=== PATIENT | male | born 1975 | race Two or more races ===

== ENCOUNTER 2020-12-04 17:20 | Inpatient (IN) | payer OTHER ==
[~2020-12-04] VITALS: Ht 167.6 cm; Wt 82.3 kg
[2020-12-04 18:22] LABS: Urine WBC None Seen /hpf (0 - 3)
[2020-12-04 18:28] LABS: Hematocrit 34.7 % (41.0-53.0); Hemoglobin 11.6 g/dL (13.5-17.5); Mean Corpuscular Hemoglobin 28.8 pg (28.0-32.0); Mean Corpuscular Hgb Conc. 33.5 g/dL (32.0-36.0); Mean Corpuscular Volume 85.8 fL (80.0-100.0); Red Blood Cells 4.04 10^6/uL (4.5-5.90); Red Cell Distribution Width 15.8 % (11.8-14.3); White Blood Cell 11.1 10^3/uL (4.4-10.8)
[2020-12-04 19:13] LABS: Urine Bacteria NONE SEEN /hpf (None Seen); Urine Blood 1+ /uL (Negative); Urine Specific Gravity 1.026 (1.001-1.035)
[2020-12-04 19:19] LABS: Band Neutrophils % (manual) 0; Basophils % (manual) 0 (0.0-2.0); Blast Cells 0; Metamyelocytes % 0; Myelocytes % 0; Promyelocytes % 0; Reactive Lymphocytes 0
[2020-12-04 19:22] LABS: Albumin 2.7 g/dL (3.4-5.0); Calcium 8.8 mg/dL (8.5-10.1); Potassium 4.9 mmol/L (3.5-5.1)
[2020-12-04 19:38] LABS: BUN/Creatinine Ratio 14.2; Bilirubin, Total 9.7 mg/dL (0.2-1.0); Total Protein 7.5 g/dL (6.4-8.2)
[2020-12-04] MEDS ORDERED: MORPHINE SULFATE 4 MG/ML SYR/VIAL IV ONE (21:15)
[2020-12-04] MEDS ORDERED: ONDANSETRON HCL 4 MG/2 ML VIAL IV ONE (21:15)
[2020-12-04] MEDS ORDERED: SODIUM CHLORIDE 0.9% 1,000 ML IV ONE (21:15)
[2020-12-04 21:35] LABS: Eosinophils % (manual) 1 (0-7); Lymphocytes % (manual) 8 (10.0-50.0); Monocytes % (manual) 5 (0-12)
[2020-12-04] MEDS ORDERED: MORPHINE SULFATE 4 MG/ML SYR/VIAL IV PRN (22:45)
[2020-12-04] MEDS ORDERED: NITROGLYCERIN 0.4 MG SL TAB SL PRN (22:45)
[2020-12-04] MEDS ORDERED: MORPHINE SULFATE INJECTION 2 MG/ML SYRG IV PRN (22:45)
[2020-12-04] MEDS ORDERED: ACETAMINOPHEN 325 MG TAB PO PRN (22:45)
[2020-12-04] MEDS ORDERED: ONDANSETRON HCL 4 MG/2 ML VIAL IV PRN (22:45)
[2020-12-04] MEDS ORDERED: SODIUM CHLORIDE 0.9% 1,000 ML IV SCH (22:45)
[2020-12-04] MEDS ORDERED: DEXTROSE (50%) 50ML SYRG IV PRN (22:45)
[2020-12-04] MEDS ORDERED: TEMAZEPAM 15 MG CAP PO PRN (22:45)
[2020-12-04] MEDS ORDERED: HYDROcodone-ACET 5/325MG TAB PO PRN (22:45)
[2020-12-05] MEDS ORDERED: NITROGLYCERIN 0.4 MG SL TAB SL PRN ×8 (00:15)
[2020-12-05] MEDS ORDERED: MORPHINE SULFATE INJECTION 2 MG/ML SYRG IV PRN ×8 (00:15)
[2020-12-05] MEDS ORDERED: ONDANSETRON HCL 4 MG/2 ML VIAL IV PRN ×8 (00:15)
[2020-12-05] MEDS ORDERED: MORPHINE SULFATE 4 MG/ML SYR/VIAL IV PRN ×7 (00:15)
[2020-12-05] MEDS ORDERED: DEXTROSE (50%) 50ML SYRG IV PRN ×8 (00:15)
[2020-12-05 01:27] LABS: Albumin 2.3 g/dL (3.4-5.0)
[2020-12-05 01:42] LABS: Bilirubin, Direct 8.2 mg/dL (0-0.2); Bilirubin, Total 9.1 mg/dL (0.2-1.0); Total Protein 6.8 g/dL (6.4-8.2)
[2020-12-05] MEDS: MORPHINE SULFATE 4 MG/ML SYR/VIAL IV PRN ×3 (03:25→16:21)
[2020-12-05 03:36] VITALS: BP 132/81
[2020-12-05] MEDS ORDERED: METF-370 PO (04:12)
[2020-12-05 05:00] VITALS: BP 124/69
[2020-12-05] MEDS ORDERED: metroNIDAZOLE 500MG/100ML 100 ML IV SCH (06:00)
[2020-12-05] MEDS: ACCU-CHEK COMFORT CURVE STRIP VI SCH ×4 (06:25→22:03)
[2020-12-05] MEDS: InsuLIN REG 1unit/0.01ml Soln (100units/ml) SC SCH ×4 (06:26→22:07)
[2020-12-05] MEDS ORDERED: ACCU-CHEK COMFORT CURVE STRIP VI SCH ×8 (07:00)
[2020-12-05] MEDS ORDERED: InsuLIN REG 1unit/0.01ml Soln (100units/ml) SC SCH ×17 (07:00→22:00)
[2020-12-05 07:44] LABS: Hematocrit 32.2 % (41.0-53.0); Hemoglobin 10.8 g/dL (13.5-17.5); Mean Corpuscular Hemoglobin 28.8 pg (28.0-32.0); Mean Corpuscular Hgb Conc. 33.7 g/dL (32.0-36.0); Mean Corpuscular Volume 85.5 fL (80.0-100.0); Red Blood Cells 3.76 10^6/uL (4.5-5.90); Red Cell Distribution Width 15.8 % (11.8-14.3); White Blood Cell 7.7 10^3/uL (4.4-10.8)
[2020-12-05 07:55] LABS: Basophils % (manual) 0 (0.0-2.0); Blast Cells 0; Eosinophils % (manual) 0 (0-7); Metamyelocytes % 0; Myelocytes % 0; Promyelocytes % 0; Reactive Lymphocytes 0
[2020-12-05 08:00] VITALS: BP 108/68
[2020-12-05 08:04] LABS: Albumin 2.6 g/dL (3.4-5.0); BUN/Creatinine Ratio 23.5; Calcium 8.6 mg/dL (8.5-10.1); Potassium 4.1 mmol/L (3.5-5.1)
[2020-12-05 08:26] LABS: Band Neutrophils % (manual) 1; Lymphocytes % (manual) 9 (10.0-50.0); Monocytes % (manual) 15 (0-12)
[2020-12-05 08:40] LABS: Bilirubin, Total 9.6 mg/dL (0.2-1.0)
[2020-12-05 08:41] LABS: Total Protein 6.6 g/dL (6.4-8.2)
[2020-12-05 08:50] LABS: Bilirubin, Direct 8.5 mg/dL (0-0.2)
[2020-12-05] MEDS: ENOXAPARIN SOD 40 MG/0.4 ML SYRINGE SC SCH ×2 (09:50→10:58)
[2020-12-05] MEDS: PANTOPRAZOLE 40 MG/10 ML VIAL INJ IV SCH ×2 (09:50→10:58)
[2020-12-05] MEDS ORDERED: PANTOPRAZOLE 40 MG/10 ML VIAL INJ IV SCH ×7 (10:00)
[2020-12-05] MEDS ORDERED: FAMOTIDINE (10MG/ML) 2ML VL IV SCH (10:00)
[2020-12-05] MEDS ORDERED: ENOXAPARIN SOD 40 MG/0.4 ML SYRINGE SC SCH ×7 (10:00)
[2020-12-05] MEDS ORDERED: HEPARIN SODIUM (PORCINE) 5000 UNITS/ML 1ML VIAL SC SCH (10:00)
[2020-12-05] MEDS ORDERED: ZINC SULFATE 220mg CAP or TAB PO SCH (10:00)
[2020-12-05] MEDS ORDERED: MULTIPLE VITAMIN TAB PO SCH (10:00)
[2020-12-05] MEDS ORDERED: ASCORBIC ACID 500 MG TAB PO SCH (10:00)
[2020-12-05 12:00] VITALS: BP 112/69
[2020-12-05 16:00] VITALS: BP 137/81
[2020-12-05 22:26] VITALS: BP 146/91
[2020-12-06 05:20] VITALS: BP 121/70
[2020-12-06] MEDS: ACCU-CHEK COMFORT CURVE STRIP VI SCH ×4 (05:51→21:40)
[2020-12-06] MEDS: MORPHINE SULFATE 4 MG/ML SYR/VIAL IV PRN ×2 (06:02→14:03)
[2020-12-06] MEDS: PANTOPRAZOLE 40 MG/10 ML VIAL INJ IV SCH (08:58)
[2020-12-06 09:00] VITALS: BP 123/80
[2020-12-06] MEDS: InsuLIN REG 1unit/0.01ml Soln (100units/ml) SC SCH ×3 (10:01→21:39)
[2020-12-06 13:00] VITALS: BP 111/71
[2020-12-06 17:00] VITALS: BP 142/91
[2020-12-06 22:19] VITALS: BP 138/85
[2020-12-07 05:26] VITALS: BP 124/68
[2020-12-07] MEDS: MORPHINE SULFATE 4 MG/ML SYR/VIAL IV PRN (05:28)
[2020-12-07] MEDS: ACCU-CHEK COMFORT CURVE STRIP VI SCH ×4 (05:28→22:13)
[2020-12-07 06:29] LABS: Albumin 2.1 g/dL (3.4-5.0); Calcium 8.6 mg/dL (8.5-10.1); Potassium 3.8 mmol/L (3.5-5.1)
[2020-12-07 06:32] LABS: BUN/Creatinine Ratio 13.6; Bilirubin, Total 8.1 mg/dL (0.2-1.0); Total Protein 6.7 g/dL (6.4-8.2)
[2020-12-07] MEDS: PANTOPRAZOLE 40 MG/10 ML VIAL INJ IV SCH (08:47)
[2020-12-07] MEDS: ENOXAPARIN SOD 40 MG/0.4 ML SYRINGE SC SCH (08:47)
[2020-12-07 08:55] VITALS: BP 119/70
[2020-12-07] MEDS: InsuLIN REG 1unit/0.01ml Soln (100units/ml) SC SCH ×3 (11:24→22:04)
[2020-12-07 13:00] VITALS: BP 107/66
[2020-12-07 16:53] VITALS: BP 131/79
[2020-12-07] MEDS ORDERED: diphenhdrAMINE HCL 50 MG/1 ML VL IV PRN (17:45)
[2020-12-07 22:00] VITALS: BP 115/71
[2020-12-08 05:00] VITALS: BP 121/70
[2020-12-08 07:01] LABS: Albumin 2.2 g/dL (3.4-5.0); BUN/Creatinine Ratio 10.9; Bilirubin, Total 8.6 mg/dL (0.2-1.0); Total Protein 6.8 g/dL (6.4-8.2)
[2020-12-08] MEDS: ACCU-CHEK COMFORT CURVE STRIP VI SCH ×4 (07:06→21:24)
[2020-12-08] MEDS: MORPHINE SULFATE 4 MG/ML SYR/VIAL IV PRN ×3 (07:33→21:33)
[2020-12-08 09:00] VITALS: BP 128/78
[2020-12-08] MEDS: PANTOPRAZOLE 40 MG/10 ML VIAL INJ IV SCH ×2 (09:33→17:00)
[2020-12-08] MEDS: ENOXAPARIN SOD 40 MG/0.4 ML SYRINGE SC SCH (09:33)
[2020-12-08 11:47] LABS: Hepatitis A Ab IgM Negative; Hepatitis B Core IgM Negative; Hepatitis B Surface Antigen Negative (Negative); Hepatitis C Antibody Negative (Negative)
[2020-12-08] MEDS: InsuLIN REG 1unit/0.01ml Soln (100units/ml) SC SCH ×2 (12:35→17:00)
[2020-12-08 13:00] VITALS: BP 131/81
[2020-12-08 16:56] VITALS: BP 123/84
[2020-12-08 18:12] LABS: INR 0.94 (0.9-1.15); Partial Thromboplastin Time 26.2 sec (23.6-33.0)
[2020-12-08] MEDS ORDERED: LACTULOSE 20Gm/30ML SOLN PO ONE (18:45)
[2020-12-08 22:00] VITALS: BP 124/73
[2020-12-09 05:00] VITALS: BP 109/69
[2020-12-09 06:15] LABS: Hematocrit 32.3 % (41.0-53.0); Mean Corpuscular Hemoglobin 28.5 pg (28.0-32.0); Mean Corpuscular Hgb Conc. 34.1 g/dL (32.0-36.0); Mean Corpuscular Volume 83.7 fL (80.0-100.0); Red Blood Cells 3.86 10^6/uL (4.5-5.90); Red Cell Distribution Width 16.2 % (11.8-14.3); White Blood Cell 4.2 10^3/uL (4.4-10.8)
[2020-12-09 06:17] LABS: Band Neutrophils % (manual) 0; Basophils % (manual) 0 (0.0-2.0); Blast Cells 0; Metamyelocytes % 0; Myelocytes % 0; Promyelocytes % 0; Reactive Lymphocytes 0
[2020-12-09] MEDS: ACCU-CHEK COMFORT CURVE STRIP VI SCH ×4 (06:38→22:01)
[2020-12-09] MEDS: InsuLIN REG 1unit/0.01ml Soln (100units/ml) SC SCH ×3 (06:38→16:47)
[2020-12-09] MEDS ORDERED: ceFAZolin 1GM/50ML 100 ML IV ONE (07:13)
[2020-12-09] MEDS ORDERED: LIDOCAINE 1% HCL (LOCAL ANESTH.) INJ 20ML MDV ONE (07:16)
[2020-12-09] MEDS ORDERED: BUPIVACAINE 0.5% MPF INJ 30ML SDV IJ ONE (07:16)
[2020-12-09 07:28] LABS: Eosinophils % (manual) 3 (0-7); Lymphocytes % (manual) 30 (10.0-50.0); Monocytes % (manual) 11 (0-12)
[2020-12-09] MEDS ORDERED: MORPHINE SULFATE 4 MG/ML SYR/VIAL IV PRN (07:30)
[2020-12-09] MEDS ORDERED: fentaNYL CITRATE 100 MCG/2 ML VL ONE (07:30)
[2020-12-09] MEDS ORDERED: HYDROmorphone HCL 2 MG/ML VL IV PRN (07:30)
[2020-12-09] MEDS ORDERED: HYDROmorphone HCL 2 MG/ML VL ONE ×2 (07:30→10:28)
[2020-12-09] MEDS ORDERED: ACCU-CHEK COMFORT CURVE STRIP VI ONE (07:30)
[2020-12-09] MEDS ORDERED: METOCLOPRAMIDE HCL 5MG/ml INJ 2ml VIAL IV PRN (07:30)
[2020-12-09] MEDS ORDERED: MIDAZOLAM HCL 2MG/2ML 2ml VIAL (1mg/ml) ONE (07:31)
[2020-12-09] MEDS ORDERED: ROCURONIUM 10MG/ML 10ML VIAL IV ONE (07:31)
[2020-12-09] MEDS ORDERED: GLYCOPYRROLATE 0.2 MG/ML 1ML VIAL ONE (07:36)
[2020-12-09] MEDS ORDERED: ONDANSETRON HCL 4 MG/2 ML VIAL ONE (07:36)
[2020-12-09] MEDS ORDERED: SODIUM CHLORIDE LOCK 10 ML ONE (07:36)
[2020-12-09] MEDS ORDERED: PROPOFOL 10 MG/ML 20 ML IV ONE (07:36)
[2020-12-09] MEDS ORDERED: NEOSTIGMINE 1 MG/ML INJ (10mg/10ML VIAL) ONE (07:36)
[2020-12-09] MEDS: ENOXAPARIN SOD 40 MG/0.4 ML SYRINGE SC SCH (10:00)
[2020-12-09 12:38] VITALS: BP 113/68
[2020-12-09] MEDS: SODIUM CHLORIDE 0.9% 1,000 ML IV SCH (12:48)
[2020-12-09] MEDS: HYDROmorphone HCL 2 MG/ML VL IV PRN ×2 (14:23→20:20)
[2020-12-09 16:39] VITALS: BP 114/69
[2020-12-09] MEDS: HYDROmorphone HCL 2 MG TAB PO PRN ×2 (16:39→21:02)
[2020-12-09 22:00] VITALS: BP 118/74
[2020-12-10] MEDS: HYDROmorphone HCL 2 MG TAB PO PRN ×5 (01:33→17:33)
[2020-12-10] MEDS: SODIUM CHLORIDE 0.9% 1,000 ML IV SCH ×4 (01:59→17:59)
[2020-12-10 05:00] VITALS: BP 121/73
[2020-12-10 06:31] LABS: Potassium 4.3 mmol/L (3.5-5.1)
[2020-12-10 06:37] LABS: BUN/Creatinine Ratio 14.5; Bilirubin, Total 5.5 mg/dL (0.2-1.0); Calcium 8.5 mg/dL (8.5-10.1); Total Protein 6.2 g/dL (6.4-8.2)
[2020-12-10 06:54] LABS: Hematocrit 26.7 % (41.0-53.0); Hemoglobin 8.9 g/dL (13.5-17.5); Mean Corpuscular Hemoglobin 28.3 pg (28.0-32.0); Mean Corpuscular Hgb Conc. 33.5 g/dL (32.0-36.0); Mean Corpuscular Volume 84.5 fL (80.0-100.0); Red Blood Cells 3.17 10^6/uL (4.5-5.90); Red Cell Distribution Width 16.2 % (11.8-14.3); White Blood Cell 11.7 10^3/uL (4.4-10.8)
[2020-12-10 07:02] LABS: Band Neutrophils % (manual) 0; Basophils % (manual) 0 (0.0-2.0); Blast Cells 0; Eosinophils % (manual) 0 (0-7); Metamyelocytes % 0; Myelocytes % 0; Promyelocytes % 0
[2020-12-10] MEDS: ACCU-CHEK COMFORT CURVE STRIP VI SCH ×4 (07:11→21:59)
[2020-12-10] MEDS: InsuLIN REG 1unit/0.01ml Soln (100units/ml) SC SCH ×3 (07:12→17:18)
[2020-12-10 07:35] LABS: Lymphocytes % (manual) 25 (10.0-50.0); Monocytes % (manual) 10 (0-12); Reactive Lymphocytes 1
[2020-12-10 09:00] VITALS: BP 132/76
[2020-12-10] MEDS: PANTOPRAZOLE 40 MG/10 ML VIAL INJ IV SCH (09:28)
[2020-12-10] MEDS: ENOXAPARIN SOD 40 MG/0.4 ML SYRINGE SC SCH (09:28)
[2020-12-10] MEDS ORDERED: MILK OF MAGNESIA 30ML SUSP PO PRN (09:30)
[2020-12-10 13:00] VITALS: BP 129/89
[2020-12-10] MEDS: FERROUS SULFATE 325mg EC TAB PO SCH ×2 (13:40→21:59)
[2020-12-10] MEDS: DOCUSATE SOD 100 MG CAP PO SCH ×2 (13:40→21:59)
[2020-12-10 16:44] VITALS: BP 134/80
[2020-12-10] MEDS: HYDROmorphone HCL 2 MG/ML VL IV PRN (20:49)
[2020-12-10] MEDS: SENNA 8.6 MG TAB PO SCH (21:59)
[2020-12-10 22:00] VITALS: BP 126/74
[2020-12-11] MEDS: HYDROmorphone HCL 2 MG TAB PO PRN ×6 (00:46→21:17)
[2020-12-11 05:00] VITALS: BP 141/76
[2020-12-11 05:59] LABS: Potassium 4.1 mmol/L (3.5-5.1)
[2020-12-11 06:11] LABS: BUN/Creatinine Ratio 10.8; Bilirubin, Total 4.4 mg/dL (0.2-1.0); Calcium 8.5 mg/dL (8.5-10.1); Total Protein 6.2 g/dL (6.4-8.2)
[2020-12-11 06:33] LABS: Hematocrit 24.7 % (41.0-53.0); Hemoglobin 8.3 g/dL (13.5-17.5); Mean Corpuscular Hemoglobin 28.2 pg (28.0-32.0); Mean Corpuscular Hgb Conc. 33.8 g/dL (32.0-36.0); Mean Corpuscular Volume 83.4 fL (80.0-100.0); Red Blood Cells 2.96 10^6/uL (4.5-5.90); Red Cell Distribution Width 16.3 % (11.8-14.3); White Blood Cell 9.8 10^3/uL (4.4-10.8)
[2020-12-11 06:35] LABS: Basophils % (manual) 0 (0.0-2.0); Blast Cells 0; Eosinophils % (manual) 0 (0-7); Promyelocytes % 0; Reactive Lymphocytes 0
[2020-12-11] MEDS: DOCUSATE SOD 100 MG CAP PO SCH ×3 (06:46→21:15)
[2020-12-11] MEDS: ACCU-CHEK COMFORT CURVE STRIP VI SCH ×4 (06:46→21:16)
[2020-12-11] MEDS: FERROUS SULFATE 325mg EC TAB PO SCH ×3 (06:46→21:15)
[2020-12-11] MEDS: InsuLIN REG 1unit/0.01ml Soln (100units/ml) SC SCH ×3 (06:50→17:09)
[2020-12-11 07:20] LABS: Band Neutrophils % (manual) 3; Lymphocytes % (manual) 16 (10.0-50.0); Metamyelocytes % 1; Monocytes % (manual) 11 (0-12); Myelocytes % 1
[2020-12-11 08:30] VITALS: BP 117/72
[2020-12-11 09:00] VITALS: BP 117/72
[2020-12-11] MEDS: ENOXAPARIN SOD 40 MG/0.4 ML SYRINGE SC SCH (10:04)
[2020-12-11] MEDS: HYDROmorphone HCL 2 MG/ML VL IV PRN ×3 (10:04→21:51)
[2020-12-11] MEDS: PANTOPRAZOLE 40 MG/10 ML VIAL INJ IV SCH (10:04)
[2020-12-11 12:30] VITALS: BP 114/65
[2020-12-11 17:00] VITALS: BP 123/68
[2020-12-11] MEDS: SENNA 8.6 MG TAB PO SCH (21:16)
[2020-12-11 21:39] VITALS: BP 120/75
[2020-12-12] MEDS: FERROUS SULFATE 325mg EC TAB PO SCH ×3 (05:23→21:38)
[2020-12-12] MEDS: HYDROmorphone HCL 2 MG TAB PO PRN ×5 (05:24→23:15)
[2020-12-12] MEDS: DOCUSATE SOD 100 MG CAP PO SCH ×3 (05:24→21:37)
[2020-12-12] MEDS: LACTULOSE 20Gm/30ML SOLN PO PRN ×2 (05:25→21:38)
[2020-12-12] MEDS: HYDROmorphone HCL 2 MG/ML VL IV PRN ×4 (05:25→21:40)
[2020-12-12 05:30] VITALS: BP 131/73
[2020-12-12] MEDS: ACCU-CHEK COMFORT CURVE STRIP VI SCH ×4 (05:54→21:38)
[2020-12-12] MEDS: InsuLIN REG 1unit/0.01ml Soln (100units/ml) SC SCH ×3 (05:54→17:31)
[2020-12-12 06:40] LABS: Calcium 8.6 mg/dL (8.5-10.1); Potassium 3.8 mmol/L (3.5-5.1)
[2020-12-12 06:46] LABS: BUN/Creatinine Ratio 15.2; Bilirubin, Total 3.3 mg/dL (0.2-1.0); Total Protein 6.4 g/dL (6.4-8.2)
[2020-12-12 06:56] LABS: Hematocrit 24.5 % (41.0-53.0); Hemoglobin 8.2 g/dL (13.5-17.5); Mean Corpuscular Hemoglobin 27.9 pg (28.0-32.0); Mean Corpuscular Hgb Conc. 33.6 g/dL (32.0-36.0); Red Blood Cells 2.96 10^6/uL (4.5-5.90); Red Cell Distribution Width 16.2 % (11.8-14.3); White Blood Cell 6.9 10^3/uL (4.4-10.8)
[2020-12-12 07:01] LABS: Band Neutrophils % (manual) 0; Basophils % (manual) 0 (0.0-2.0); Blast Cells 0; Metamyelocytes % 0; Promyelocytes % 0; Reactive Lymphocytes 0
[2020-12-12 08:06] LABS: Eosinophils % (manual) 2 (0-7); Lymphocytes % (manual) 25 (10.0-50.0); Monocytes % (manual) 9 (0-12); Myelocytes % 1
[2020-12-12 08:30] VITALS: BP 130/74
[2020-12-12] MEDS: PANTOPRAZOLE 40 MG/10 ML VIAL INJ IV SCH (08:56)
[2020-12-12] MEDS: ENOXAPARIN SOD 40 MG/0.4 ML SYRINGE SC SCH (08:56)
[2020-12-12 12:30] VITALS: BP 120/74
[2020-12-12 17:00] VITALS: BP 119/73
[2020-12-12] MEDS: SENNA 8.6 MG TAB PO SCH (21:38)
[2020-12-12 22:00] VITALS: BP 139/75
[2020-12-13 05:00] VITALS: BP 127/75
[2020-12-13] MEDS: FERROUS SULFATE 325mg EC TAB PO SCH ×3 (05:38→21:25)
[2020-12-13] MEDS: DOCUSATE SOD 100 MG CAP PO SCH ×3 (05:38→21:25)
[2020-12-13] MEDS: HYDROmorphone HCL 2 MG TAB PO PRN ×4 (05:39→21:26)
[2020-12-13] MEDS: HYDROmorphone HCL 2 MG/ML VL IV PRN ×4 (05:40→22:19)
[2020-12-13] MEDS: ACCU-CHEK COMFORT CURVE STRIP VI SCH ×4 (06:03→21:25)
[2020-12-13] MEDS: InsuLIN REG 1unit/0.01ml Soln (100units/ml) SC SCH ×3 (06:03→19:54)
[2020-12-13 07:41] LABS: Hematocrit 26.9 % (41.0-53.0); Hemoglobin 9.2 g/dL (13.5-17.5); Mean Corpuscular Hemoglobin 29.1 pg (28.0-32.0); Mean Corpuscular Hgb Conc. 34.1 g/dL (32.0-36.0); Mean Corpuscular Volume 85.2 fL (80.0-100.0); Red Blood Cells 3.16 10^6/uL (4.5-5.90); Red Cell Distribution Width 16.2 % (11.8-14.3); White Blood Cell 8.7 10^3/uL (4.4-10.8)
[2020-12-13 07:47] LABS: Blast Cells 0; Eosinophils % (manual) 0 (0-7); Promyelocytes % 0; Reactive Lymphocytes 0
[2020-12-13 08:02] LABS: Albumin 2.1 g/dL (3.4-5.0); Calcium 9.3 mg/dL (8.5-10.1); Potassium 4.3 mmol/L (3.5-5.1)
[2020-12-13 08:06] LABS: BUN/Creatinine Ratio 13.2; Bilirubin, Total 2.9 mg/dL (0.2-1.0)
[2020-12-13 08:53] LABS: Band Neutrophils % (manual) 1; Basophils % (manual) 1 (0.0-2.0); Lymphocytes % (manual) 23 (10.0-50.0); Metamyelocytes % 2; Monocytes % (manual) 16 (0-12); Myelocytes % 2
[2020-12-13 09:00] VITALS: BP 136/75
[2020-12-13] MEDS: ENOXAPARIN SOD 40 MG/0.4 ML SYRINGE SC SCH (10:00)
[2020-12-13] MEDS: Pro-Stat SF 30ml Vanilla PO SCH (10:05)
[2020-12-13] MEDS: PANTOPRAZOLE 40 MG/10 ML VIAL INJ IV SCH (10:05)
[2020-12-13 13:00] VITALS: BP 117/69
[2020-12-13] MEDS ORDERED: IOHEXOL 300 MG/ML 100ML BOTTLE IJ ONE (16:46)
[2020-12-13 16:57] VITALS: BP 114/65
[2020-12-13] MEDS ORDERED: HYDROmorphone HCL 2 MG/ML VL ONE (17:27)
[2020-12-13] MEDS ORDERED: SUCCINYLCHOLINE CHLORIDE 20 MG/ML 10ML VIAL IV ONE (17:30)
[2020-12-13] MEDS ORDERED: ePHEDrine SULFATE 50 MG/ML AMP IV ONE (17:33)
[2020-12-13] MEDS ORDERED: METOCLOPRAMIDE HCL 5MG/ml INJ 2ml VIAL ONE (18:04)
[2020-12-13] MEDS ORDERED: ONDANSETRON HCL 4 MG/2 ML VIAL ONE (18:04)
[2020-12-13] MEDS ORDERED: HYDROmorphone HCL 2 MG/ML VL IV PRN (18:45)
[2020-12-13] MEDS ORDERED: ONDANSETRON HCL 4 MG/2 ML VIAL IV PRN (18:45)
[2020-12-13] MEDS: SENNA 8.6 MG TAB PO SCH (21:25)
[2020-12-13 22:00] VITALS: BP 115/66
[2020-12-14] MEDS: HYDROmorphone HCL 2 MG TAB PO PRN ×3 (01:28→21:25)
[2020-12-14 05:00] VITALS: BP 141/80
[2020-12-14] MEDS: FERROUS SULFATE 325mg EC TAB PO SCH ×3 (06:21→21:24)
[2020-12-14] MEDS: DOCUSATE SOD 100 MG CAP PO SCH ×3 (06:22→21:24)
[2020-12-14] MEDS: ACCU-CHEK COMFORT CURVE STRIP VI SCH ×4 (06:23→21:24)
[2020-12-14] MEDS: HYDROmorphone HCL 2 MG/ML VL IV PRN (06:23)
[2020-12-14] MEDS: INSULIN LANTUS (GLARGINE) 1 /0.01ml (100units/ml) SC SCH (06:24)
[2020-12-14] MEDS: InsuLIN REG 1unit/0.01ml Soln (100units/ml) SC SCH ×4 (06:25→21:31)
[2020-12-14 06:31] LABS: Basophils # (auto) 0 10 ^3/uL (0-0.2); Basophils % (auto) 0.2 % (0.0-2.0); Eosinophils # (auto) 0 10 ^3/uL (0-0.8); Hematocrit 27.8 % (41.0-53.0); Hemoglobin 9.4 g/dL (13.5-17.5); Lymphocytes % (auto) 7.1 % (10.0-50.0); Mean Corpuscular Hgb Conc. 33.8 g/dL (32.0-36.0); Mean Corpuscular Volume 85.7 fL (80.0-100.0); Monocytes # (auto) 1.2 10 ^3/uL (0-1.3); Monocytes % (auto) 8.7 % (0.0-12.0); Neutrophils # (auto) 11.4 10 ^3/uL (1.6-8.6); Nucleated Red Blood Cells % 0.1 %; Red Blood Cells 3.24 10^6/uL (4.5-5.90); Red Cell Distribution Width 16.1 % (11.8-14.3); White Blood Cell 13.6 10^3/uL (4.4-10.8)
[2020-12-14 06:47] LABS: Potassium 4.4 mmol/L (3.5-5.1)
[2020-12-14 06:59] LABS: Albumin 2.1 g/dL (3.4-5.0); BUN/Creatinine Ratio 14.3; Calcium 8.7 mg/dL (8.5-10.1); Total Protein 7.1 g/dL (6.4-8.2)
[2020-12-14 09:00] VITALS: BP 117/68
[2020-12-14] MEDS: Pro-Stat SF 30ml Vanilla PO SCH (10:00)
[2020-12-14] MEDS: PANTOPRAZOLE 40 MG/10 ML VIAL INJ IV SCH (11:52)
[2020-12-14] MEDS: ENOXAPARIN SOD 40 MG/0.4 ML SYRINGE SC SCH (11:52)
[2020-12-14 13:00] VITALS: BP 121/68
[2020-12-14 17:00] VITALS: BP 118/69
[2020-12-14 20:00] VITALS: BP 108/59
[2020-12-14] MEDS: SENNA 8.6 MG TAB PO SCH (21:24)
[2020-12-14 22:00] VITALS: BP 108/59
[2020-12-15 05:00] VITALS: BP 117/66
[2020-12-15 06:11] LABS: Basophils # (auto) 0.1 10 ^3/uL (0-0.2); Basophils % (auto) 0.2 % (0.0-2.0); Eosinophils # (auto) 0 10 ^3/uL (0-0.8); Eosinophils % (auto) 0.2 % (0.0-7.0); Hematocrit 24.5 % (41.0-53.0); Hemoglobin 8.5 g/dL (13.5-17.5); Lymphocytes # (auto) 2.2 10 ^3/uL (0.4-5.4); Lymphocytes % (auto) 10.1 % (10.0-50.0); Mean Corpuscular Hemoglobin 29.7 pg (28.0-32.0); Mean Corpuscular Hgb Conc. 34.9 g/dL (32.0-36.0); Mean Corpuscular Volume 85.2 fL (80.0-100.0); Monocytes # (auto) 1.9 10 ^3/uL (0-1.3); Monocytes % (auto) 8.7 % (0.0-12.0); Neutrophils # (auto) 17.8 10 ^3/uL (1.6-8.6); Neutrophils % (auto) 80.8 % (37.0-80.0); Red Blood Cells 2.87 10^6/uL (4.5-5.90); Red Cell Distribution Width 16.5 % (11.8-14.3)
[2020-12-15 06:18] LABS: Albumin 1.9 g/dL (3.4-5.0); Calcium 8.4 mg/dL (8.5-10.1); Potassium 4.1 mmol/L (3.5-5.1)
[2020-12-15 06:20] LABS: BUN/Creatinine Ratio 17.8
[2020-12-15 06:23] LABS: Bilirubin, Total 2.9 mg/dL (0.2-1.0); Total Protein 6.6 g/dL (6.4-8.2)
[2020-12-15] MEDS: FERROUS SULFATE 325mg EC TAB PO SCH ×3 (06:33→21:36)
[2020-12-15] MEDS: DOCUSATE SOD 100 MG CAP PO SCH ×3 (06:33→21:36)
[2020-12-15] MEDS: ACCU-CHEK COMFORT CURVE STRIP VI SCH ×4 (06:35→21:36)
[2020-12-15] MEDS: INSULIN LANTUS (GLARGINE) 1 /0.01ml (100units/ml) SC SCH (06:40)
[2020-12-15] MEDS: InsuLIN REG 1unit/0.01ml Soln (100units/ml) SC SCH ×4 (06:42→21:40)
[2020-12-15 09:00] VITALS: BP 96/62
[2020-12-15] MEDS ORDERED: VANCOMYCIN PER PHARMACY 0 MG IV SCH (09:15)
[2020-12-15] MEDS: Pro-Stat SF 30ml Vanilla PO SCH (10:09)
[2020-12-15] MEDS: ENOXAPARIN SOD 40 MG/0.4 ML SYRINGE SC SCH (10:51)
[2020-12-15] MEDS: PANTOPRAZOLE 40 MG/10 ML VIAL INJ IV SCH (10:51)
[2020-12-15] MEDS ORDERED: VANCOMYCIN 1GM/250ML 250 ML IV ONE (11:00)
[2020-12-15] MEDS: SOD CHL 0.45% 1,000 ML IV SCH ×2 (11:08→21:35)
[2020-12-15 13:00] VITALS: BP 102/64
[2020-12-15] MEDS: MEROPENEM 1GM IVPB 100 ML IV SCH ×2 (13:47→21:59)
[2020-12-15 17:00] VITALS: BP 102/57
[2020-12-15] MEDS: VANCOMYCIN 1GM/250ML 250 ML IV SCH (18:54)
[2020-12-15 20:00] VITALS: BP 101/62
[2020-12-15] MEDS: SENNA 8.6 MG TAB PO SCH (21:36)
[2020-12-15 22:00] VITALS: BP 101/62
[2020-12-16] MEDS: VANCOMYCIN 1GM/250ML 250 ML IV SCH ×3 (03:06→18:20)
[2020-12-16 05:00] VITALS: BP 103/62
[2020-12-16] MEDS: FERROUS SULFATE 325mg EC TAB PO SCH ×3 (06:41→21:34)
[2020-12-16] MEDS: DOCUSATE SOD 100 MG CAP PO SCH ×3 (06:42→21:34)
[2020-12-16] MEDS: InsuLIN REG 1unit/0.01ml Soln (100units/ml) SC SCH ×4 (06:43→21:36)
[2020-12-16 06:48] LABS: Hematocrit 22.4 % (41.0-53.0); Hemoglobin 7.5 g/dL (13.5-17.5); Mean Corpuscular Hemoglobin 28.3 pg (28.0-32.0); Mean Corpuscular Hgb Conc. 33.2 g/dL (32.0-36.0); Mean Corpuscular Volume 85.2 fL (80.0-100.0); Red Blood Cells 2.63 10^6/uL (4.5-5.90); Red Cell Distribution Width 16.1 % (11.8-14.3); White Blood Cell 14.8 10^3/uL (4.4-10.8)
[2020-12-16] MEDS: INSULIN LANTUS (GLARGINE) 1 /0.01ml (100units/ml) SC SCH (06:48)
[2020-12-16] MEDS: ACCU-CHEK COMFORT CURVE STRIP VI SCH ×4 (06:52→21:35)
[2020-12-16] MEDS: MEROPENEM 1GM IVPB 100 ML IV SCH ×3 (06:53→22:49)
[2020-12-16 06:56] LABS: Chloride 101 mmol/L (98-107); Potassium 4.1 mmol/L (3.5-5.1); Sodium 135 mmol/L (136-145)
[2020-12-16] MEDS: SOD CHL 0.45% 1,000 ML IV SCH ×3 (07:00→20:00)
[2020-12-16 07:06] LABS: Alanine Aminotransferase 94 U/L (16-61); Albumin 1.8 g/dL (3.4-5.0); Anion Gap 5 (5-15); Aspartate Aminotransferase 42 U/L (15-37); BUN/Creatinine Ratio 16.9; Blood Urea Nitrogen 11 mg/dL (7-18); Calcium 8.3 mg/dL (8.5-10.1); Carbon Dioxide 29 mmol/L (21-32); GFR African American 172 mL/min; GFR Non-African American 142 mL/min; Glucose 238 mg/dL (74-106)
[2020-12-16 07:08] LABS: Alkaline Phosphatase 416 U/L (45-117); Bilirubin, Total 2.3 mg/dL (0.2-1.0); Total Protein 6.7 g/dL (6.4-8.2)
[2020-12-16 07:49] LABS: Band Neutrophils % (manual) 0; Basophils % (manual) 0 (0.0-2.0); Blast Cells 0; Eosinophils % (manual) 0 (0-7); Metamyelocytes % 0; Myelocytes % 0; Promyelocytes % 0; Reactive Lymphocytes 0
[2020-12-16 07:53] LABS: Lymphocytes % (manual) 9 (10.0-50.0); Monocytes % (manual) 4 (0-12)
[2020-12-16 09:00] VITALS: BP 107/67
[2020-12-16] MEDS: ENOXAPARIN SOD 40 MG/0.4 ML SYRINGE SC SCH (10:59)
[2020-12-16] MEDS: PANTOPRAZOLE 40 MG/10 ML VIAL INJ IV SCH (10:59)
[2020-12-16] MEDS: Pro-Stat SF 30ml Vanilla PO SCH (11:00)
[2020-12-16 13:00] VITALS: BP 128/71
[2020-12-16 16:37] VITALS: BP 103/61
[2020-12-16] MEDS: SENNA 8.6 MG TAB PO SCH (21:34)
[2020-12-16 22:00] VITALS: BP 110/59
[2020-12-17] MEDS: VANCOMYCIN 1GM/250ML 250 ML IV SCH ×3 (03:15→18:49)
[2020-12-17 05:00] VITALS: BP 117/70
[2020-12-17] MEDS: MEROPENEM 1GM IVPB 100 ML IV SCH ×3 (06:19→22:34)
[2020-12-17] MEDS: DOCUSATE SOD 100 MG CAP PO SCH ×3 (06:20→22:29)
[2020-12-17] MEDS: FERROUS SULFATE 325mg EC TAB PO SCH ×3 (06:20→22:29)
[2020-12-17] MEDS: ACCU-CHEK COMFORT CURVE STRIP VI SCH ×4 (06:21→22:00)
[2020-12-17] MEDS: InsuLIN REG 1unit/0.01ml Soln (100units/ml) SC SCH ×4 (06:28→22:00)
[2020-12-17] MEDS: INSULIN LANTUS (GLARGINE) 1 /0.01ml (100units/ml) SC SCH (06:32)
[2020-12-17 06:50] LABS: Basophils # (auto) 0 10 ^3/uL (0-0.2); Basophils % (auto) 0.6 % (0.0-2.0); Eosinophils # (auto) 0 10 ^3/uL (0-0.8); Eosinophils % (auto) 0.5 % (0.0-7.0); Hematocrit 24.3 % (41.0-53.0); Hemoglobin 8.5 g/dL (13.5-17.5); Lymphocytes # (auto) 1.8 10 ^3/uL (0.4-5.4); Lymphocytes % (auto) 21.9 % (10.0-50.0); Mean Corpuscular Hemoglobin 29.6 pg (28.0-32.0); Mean Corpuscular Hgb Conc. 34.9 g/dL (32.0-36.0); Mean Corpuscular Volume 84.8 fL (80.0-100.0); Monocytes # (auto) 0.8 10 ^3/uL (0-1.3); Monocytes % (auto) 9.8 % (0.0-12.0); Neutrophils # (auto) 5.4 10 ^3/uL (1.6-8.6); Neutrophils % (auto) 67.2 % (37.0-80.0); Nucleated Red Blood Cells % 0.1 %; Red Blood Cells 2.87 10^6/uL (4.5-5.90); White Blood Cell 8.1 10^3/uL (4.4-10.8)
[2020-12-17 06:58] LABS: Calcium 8.5 mg/dL (8.5-10.1); Potassium 3.9 mmol/L (3.5-5.1)
[2020-12-17 07:04] LABS: Albumin 1.7 g/dL (3.4-5.0); BUN/Creatinine Ratio 16.9; Bilirubin, Total 1.8 mg/dL (0.2-1.0); Total Protein 6.8 g/dL (6.4-8.2)
[2020-12-17 08:14] VITALS: BP 107/61
[2020-12-17] MEDS: Pro-Stat SF 30ml Vanilla PO SCH (08:40)
[2020-12-17] MEDS: ENOXAPARIN SOD 40 MG/0.4 ML SYRINGE SC SCH (08:40)
[2020-12-17] MEDS: PANTOPRAZOLE 40 MG/10 ML VIAL INJ IV SCH (08:40)
[2020-12-17 13:42] VITALS: BP 110/67
[2020-12-17] MEDS: SOD CHL 0.45% 1,000 ML IV SCH ×2 (14:38→23:00)
[2020-12-17 16:23] VITALS: BP 109/66
[2020-12-17 22:00] VITALS: BP 107/62
[2020-12-17] MEDS: SENNA 8.6 MG TAB PO SCH (22:33)
[2020-12-18] MEDS: VANCOMYCIN 1GM/250ML 250 ML IV SCH ×3 (02:10→17:41)
[2020-12-18 05:00] VITALS: BP 114/72
[2020-12-18 05:04] LABS: Albumin 1.8 g/dL (3.4-5.0); Calcium 8.4 mg/dL (8.5-10.1); Potassium 4.1 mmol/L (3.5-5.1)
[2020-12-18 05:08] LABS: Bilirubin, Total 1.7 mg/dL (0.2-1.0); Total Protein 6.8 g/dL (6.4-8.2)
[2020-12-18] MEDS: MEROPENEM 1GM IVPB 100 ML IV SCH ×3 (05:53→21:48)
[2020-12-18] MEDS: FERROUS SULFATE 325mg EC TAB PO SCH ×3 (05:53→21:47)
[2020-12-18] MEDS: DOCUSATE SOD 100 MG CAP PO SCH ×3 (05:53→21:47)
[2020-12-18] MEDS: InsuLIN REG 1unit/0.01ml Soln (100units/ml) SC SCH ×4 (06:41→21:53)
[2020-12-18] MEDS: INSULIN LANTUS (GLARGINE) 1 /0.01ml (100units/ml) SC SCH (06:42)
[2020-12-18] MEDS: ACCU-CHEK COMFORT CURVE STRIP VI SCH ×4 (06:43→21:53)
[2020-12-18 07:16] LABS: Basophils # (auto) 0.1 10 ^3/uL (0-0.2); Basophils % (auto) 0.7 % (0.0-2.0); Eosinophils # (auto) 0 10 ^3/uL (0-0.8); Eosinophils % (auto) 0.2 % (0.0-7.0); Hemoglobin 9.2 g/dL (13.5-17.5); Lymphocytes # (auto) 1.8 10 ^3/uL (0.4-5.4); Lymphocytes % (auto) 21.4 % (10.0-50.0); Mean Corpuscular Hemoglobin 28.9 pg (28.0-32.0); Mean Corpuscular Hgb Conc. 34.2 g/dL (32.0-36.0); Mean Corpuscular Volume 84.5 fL (80.0-100.0); Monocytes % (auto) 11.7 % (0.0-12.0); Neutrophils # (auto) 5.4 10 ^3/uL (1.6-8.6); Nucleated Red Blood Cells % 0.2 %; Red Blood Cells 3.19 10^6/uL (4.5-5.90); Red Cell Distribution Width 15.7 % (11.8-14.3); White Blood Cell 8.2 10^3/uL (4.4-10.8)
[2020-12-18 08:52] VITALS: BP 107/67
[2020-12-18] MEDS: SOD CHL 0.45% 1,000 ML IV SCH (09:00)
[2020-12-18] MEDS: PANTOPRAZOLE 40 MG/10 ML VIAL INJ IV SCH (09:04)
[2020-12-18] MEDS: ENOXAPARIN SOD 40 MG/0.4 ML SYRINGE SC SCH (09:04)
[2020-12-18] MEDS: Pro-Stat SF 30ml Vanilla PO SCH (09:04)
[2020-12-18 12:31] VITALS: BP 98/63
[2020-12-18 16:47] VITALS: BP 113/64
[2020-12-18] MEDS: SENNA 8.6 MG TAB PO SCH (21:47)
[2020-12-18 22:00] VITALS: BP 115/69
[2020-12-19] MEDS: VANCOMYCIN 1GM/250ML 250 ML IV SCH ×3 (01:44→18:19)
[2020-12-19 04:45] VITALS: BP 111/71
[2020-12-19] MEDS: DOCUSATE SOD 100 MG CAP PO SCH ×3 (05:52→21:43)
[2020-12-19] MEDS: FERROUS SULFATE 325mg EC TAB PO SCH ×3 (05:52→21:43)
[2020-12-19] MEDS: MEROPENEM 1GM IVPB 100 ML IV SCH ×3 (05:52→21:42)
[2020-12-19] MEDS: SOD CHL 0.45% 1,000 ML IV SCH ×2 (05:56→15:34)
[2020-12-19] MEDS: InsuLIN REG 1unit/0.01ml Soln (100units/ml) SC SCH ×4 (06:25→21:44)
[2020-12-19] MEDS: ACCU-CHEK COMFORT CURVE STRIP VI SCH ×4 (06:26→21:44)
[2020-12-19] MEDS: INSULIN LANTUS (GLARGINE) 1 /0.01ml (100units/ml) SC SCH (06:26)
[2020-12-19 08:00] VITALS: BP 108/69
[2020-12-19 08:49] VITALS: BP 108/69
[2020-12-19] MEDS: PANTOPRAZOLE 40 MG/10 ML VIAL INJ IV SCH (09:34)
[2020-12-19] MEDS: ENOXAPARIN SOD 40 MG/0.4 ML SYRINGE SC SCH (09:35)
[2020-12-19] MEDS: Pro-Stat SF 30ml Vanilla PO SCH (09:35)
[2020-12-19 12:00] VITALS: BP 117/75
[2020-12-19 16:00] VITALS: BP 111/68
[2020-12-19 18:22] LABS: Basophils # (auto) 0.1 10 ^3/uL (0-0.2); Basophils % (auto) 1.1 % (0.0-2.0); Eosinophils # (auto) 0 10 ^3/uL (0-0.8); Eosinophils % (auto) 0.3 % (0.0-7.0); Hemoglobin 9.4 g/dL (13.5-17.5); Lymphocytes % (auto) 22.3 % (10.0-50.0); Mean Corpuscular Hemoglobin 28.4 pg (28.0-32.0); Mean Corpuscular Hgb Conc. 33.5 g/dL (32.0-36.0); Mean Corpuscular Volume 84.8 fL (80.0-100.0); Neutrophils # (auto) 5.6 10 ^3/uL (1.6-8.6); Neutrophils % (auto) 64.3 % (37.0-80.0); Nucleated Red Blood Cells % 0.1 %; Red Cell Distribution Width 16.3 % (11.8-14.3); White Blood Cell 8.7 10^3/uL (4.4-10.8)
[2020-12-19] MEDS: HYDROmorphone HCL 2 MG TAB PO PRN (19:53)
[2020-12-19] MEDS: SENNA 8.6 MG TAB PO SCH (21:43)
[2020-12-19 22:00] VITALS: BP 119/69
[2020-12-20] MEDS: SOD CHL 0.45% 1,000 ML IV SCH ×3 (00:43→21:00)
[2020-12-20] MEDS: VANCOMYCIN 1GM/250ML 250 ML IV SCH ×3 (02:01→21:54)
[2020-12-20 05:00] VITALS: BP 121/63
[2020-12-20] MEDS: MEROPENEM 1GM IVPB 100 ML IV SCH ×3 (05:30→23:23)
[2020-12-20] MEDS: DOCUSATE SOD 100 MG CAP PO SCH ×3 (05:31→21:55)
[2020-12-20] MEDS: FERROUS SULFATE 325mg EC TAB PO SCH ×3 (05:31→21:54)
[2020-12-20] MEDS: ACCU-CHEK COMFORT CURVE STRIP VI SCH ×4 (06:03→21:55)
[2020-12-20 06:05] LABS: Potassium 4.3 mmol/L (3.5-5.1)
[2020-12-20] MEDS: InsuLIN REG 1unit/0.01ml Soln (100units/ml) SC SCH ×4 (06:12→22:20)
[2020-12-20] MEDS: INSULIN LANTUS (GLARGINE) 1 /0.01ml (100units/ml) SC SCH (06:13)
[2020-12-20 06:15] LABS: BUN/Creatinine Ratio 18.9; Calcium 8.4 mg/dL (8.5-10.1)
[2020-12-20 06:26] LABS: Basophils # (auto) 0.1 10 ^3/uL (0-0.2); Eosinophils # (auto) 0 10 ^3/uL (0-0.8); Eosinophils % (auto) 0.3 % (0.0-7.0); Hematocrit 26.5 % (41.0-53.0); Hemoglobin 9.4 g/dL (13.5-17.5); Lymphocytes # (auto) 2.2 10 ^3/uL (0.4-5.4); Lymphocytes % (auto) 26.1 % (10.0-50.0); Mean Corpuscular Hemoglobin 29.7 pg (28.0-32.0); Mean Corpuscular Hgb Conc. 35.3 g/dL (32.0-36.0); Mean Corpuscular Volume 84.1 fL (80.0-100.0); Neutrophils % (auto) 60.6 % (37.0-80.0); Nucleated Red Blood Cells % 0.1 %; Red Blood Cells 3.15 10^6/uL (4.5-5.90); Red Cell Distribution Width 16.2 % (11.8-14.3); White Blood Cell 8.3 10^3/uL (4.4-10.8)
[2020-12-20 07:30] VITALS: BP 107/68
[2020-12-20 09:00] VITALS: BP 107/68
[2020-12-20] MEDS: ENOXAPARIN SOD 40 MG/0.4 ML SYRINGE SC SCH (09:41)
[2020-12-20] MEDS: PANTOPRAZOLE 40 MG/10 ML VIAL INJ IV SCH (09:41)
[2020-12-20] MEDS: Pro-Stat SF 30ml Vanilla PO SCH (09:41)
[2020-12-20 12:43] VITALS: BP 119/65
[2020-12-20 17:00] VITALS: BP 104/67
[2020-12-20] MEDS: SENNA 8.6 MG TAB PO SCH (21:55)
[2020-12-20 22:00] VITALS: BP 100/62
[2020-12-21 05:00] VITALS: BP 124/71
[2020-12-21] MEDS: FERROUS SULFATE 325mg EC TAB PO SCH (05:53)
[2020-12-21] MEDS: DOCUSATE SOD 100 MG CAP PO SCH (05:53)
[2020-12-21] MEDS: SOD CHL 0.45% 1,000 ML IV SCH (06:16)
[2020-12-21] MEDS: MEROPENEM 1GM IVPB 100 ML IV SCH (06:16)
[2020-12-21] MEDS: ACCU-CHEK COMFORT CURVE STRIP VI SCH ×2 (06:16→12:18)
[2020-12-21] MEDS: InsuLIN REG 1unit/0.01ml Soln (100units/ml) SC SCH ×2 (06:26→12:31)
[2020-12-21] MEDS: INSULIN LANTUS (GLARGINE) 1 /0.01ml (100units/ml) SC SCH (06:27)
[2020-12-21 08:13] VITALS: BP 100/58
[2020-12-21 08:46] VITALS: BP 100/58
[2020-12-21] MEDS: PANTOPRAZOLE 40 MG/10 ML VIAL INJ IV SCH (09:41)
[2020-12-21] MEDS: ENOXAPARIN SOD 40 MG/0.4 ML SYRINGE SC SCH (09:41)
[2020-12-21] MEDS: VANCOMYCIN 1GM/250ML 250 ML IV SCH (09:42)
[2020-12-21] MEDS: Pro-Stat SF 30ml Vanilla PO SCH (09:42)
[2020-12-21 10:58] VITALS: BP 100/58
[2020-12-21 13:00] VITALS: BP 101/63
== END 2020-12-21 14:20 | DRG 409 ==
LOC: ER 17:20 → EEVIPCON 17:20 → OVERFLOW 22:40 → WEST WING 23:10 → OVERFLOW 23:29 → EAST 12-05 02:25 → CENTRAL 12-05 17:20
PROVIDERS: ADMIT Nurse Practitioner Family; ATTEND Internal Medicine
PROC: 0FC90ZZ Extirpation of Matter from Common Bile Duct, Open Approach (ICD-10-PCS; 2020-12-09)
PROC: 0FT40ZZ Resection of Gallbladder, Open Approach (ICD-10-PCS; 2020-12-09)
PROC: 0FJ44ZZ Inspection of Gallbladder, Percutaneous Endoscopic Approach (ICD-10-PCS; 2020-12-09)
PROC: 0FQ90ZZ Repair Common Bile Duct, Open Approach (ICD-10-PCS; 2020-12-09)
PROC: 0DNU0ZZ Release Omentum, Open Approach (ICD-10-PCS; 2020-12-09)
PROC: 0F944ZZ Drainage of Gallbladder, Percutaneous Endoscopic Approach (ICD-10-PCS; principal; 2020-12-09 07:30)
PROC: 0FC88ZZ Extirpation of Matter from Cystic Duct, Via Natural or Artificial Opening Endoscopic (ICD-10-PCS; 2020-12-13)
PROC: BF141ZZ Fluoroscopy of Gallbladder, Bile Ducts and Pancreatic Ducts using Low Osmolar Contrast (ICD-10-PCS; 2020-12-13)
DX: K80.67 Calculus of gallbladder and bile duct with acute and chronic cholecystitis with obstruction (principal); E44.1 Mild protein-calorie malnutrition; E87.1 Hypo-osmolality and hyponatremia; S36.128A Other injury of gallbladder, initial encounter; E11.22 Type 2 diabetes mellitus with diabetic chronic kidney disease; E86.0 Dehydration; E11.65 Type 2 diabetes mellitus with hyperglycemia; R94.31 Abnormal electrocardiogram [ECG] [EKG]; K59.03 Drug induced constipation; T40.605A Adverse effect of unspecified narcotics, initial encounter; D64.9 Anemia, unspecified; N18.9 Chronic kidney disease, unspecified; K72.90 Hepatic failure, unspecified without coma; Z53.31 Laparoscopic surgical procedure converted to open procedure; E78.5 Hyperlipidemia, unspecified; F17.210 Nicotine dependence, cigarettes, uncomplicated; K82.8 Other specified diseases of gallbladder; Z90.49 Acquired absence of other specified parts of digestive tract; Z20.822 Contact with and (suspected) exposure to COVID-19; D72.829 Elevated white blood cell count, unspecified; R58 Hemorrhage, not elsewhere classified
CPT/HCPCS: 36415; 71045; 74018; 74176; 74181; 76000; 76705; 80048; 80053; 80074; 80076; 80202; 80329; 81001; 82140; 82248; 82565; 82962; 83036; 83690; 83735; 84484; 85007; 85025; 85027; 85610; 85730; 86850; 86900; 86901; 86920; 87040; 87426; 93005; 96361; 96374; 96375; 97110; 97116; 97163; 97530; C1726; C9113; G0378; J0330; J0690; J1815; J2001; J2185; J2250; J2405; J2704; J3490

== ENCOUNTER 2020-12-31 17:04 | Inpatient (IN) | payer OTHER ==
[~2020-12-31] VITALS: Ht 177.8 cm; Wt 78.9 kg
[~2020-12-31 17:04] MED LIST: METF-370 PO
[2020-12-31 19:09] LABS: Basophils # (auto) 0.1 10 ^3/uL (0-0.2); Basophils % (auto) 0.9 % (0.0-2.0); Eosinophils # (auto) 0 10 ^3/uL (0-0.8); Eosinophils % (auto) 0.1 % (0.0-7.0); Hematocrit 27.7 % (41.0-53.0); Hemoglobin 9.4 g/dL (13.5-17.5); Lymphocytes % (auto) 24.4 % (10.0-50.0); Mean Corpuscular Hemoglobin 27.4 pg (28.0-32.0); Mean Corpuscular Hgb Conc. 33.8 g/dL (32.0-36.0); Mean Corpuscular Volume 81.1 fL (80.0-100.0); Monocytes % (auto) 12.4 % (0.0-12.0); Neutrophils # (auto) 5.1 10 ^3/uL (1.6-8.6); Neutrophils % (auto) 62.2 % (37.0-80.0); Nucleated Red Blood Cells % 0.1 %; Red Blood Cells 3.42 10^6/uL (4.5-5.90); Red Cell Distribution Width 15.7 % (11.8-14.3); White Blood Cell 8.2 10^3/uL (4.4-10.8)
[2020-12-31 19:25] LABS: Albumin 2.4 g/dL (3.4-5.0); Potassium 4.5 mmol/L (3.5-5.1)
[2020-12-31 19:28] LABS: BUN/Creatinine Ratio 21.3; Bilirubin, Total 1.1 mg/dL (0.2-1.0); Total Protein 8.2 g/dL (6.4-8.2)
[2020-12-31] MEDS ORDERED: [UNRECOGNIZED DRUG - OTHER] SCH (22:15)
[2020-12-31] MEDS ORDERED: MORPHINE SULFATE INJECTION 2 MG/ML SYRG IV PRN (22:15)
[2020-12-31] MEDS ORDERED: SODIUM CHL 0.9% SCH (22:15)
[2020-12-31] MEDS ORDERED: HYDROcodone-ACET 5/325MG TAB PO PRN (22:15)
[2020-12-31] MEDS ORDERED: HYDROmorphone HCL 2 MG/ML VL IV PRN (22:15)
[2020-12-31] MEDS ORDERED: ONDANSETRON HCL 4 MG/2 ML VIAL IV PRN (22:15)
[2020-12-31] MEDS ORDERED: NITROGLYCERIN 0.4 MG SL TAB SL PRN (22:15)
[2020-12-31 22:52] VITALS: BP 119/67
[2021-01-01] VITALS: BP 103/63
[2021-01-01] MEDS ORDERED: ATO40T PO (00:06)
[2021-01-01] MEDS ORDERED: DOCU-94 PO (00:06)
[2021-01-01] MEDS ORDERED: METF-370 PO (00:06)
[2021-01-01] MEDS ORDERED: FERR-20 PO (00:06)
[2021-01-01] MEDS ORDERED: ASPI-543 PO (00:06)
[2021-01-01] MEDS ORDERED: PNEUMOCOCCAL VACC POLYS 25 MCG/0.5 ML VIAL IM ONE (00:15)
[2021-01-01 05:00] VITALS: BP 102/62
[2021-01-01 09:00] VITALS: BP 99/61
[2021-01-01 13:00] VITALS: BP 105/66
[2021-01-01] MEDS ORDERED: MEROPENEM 1GM IVPB 100 ML IV SCH (14:00)
[2021-01-01 17:00] VITALS: BP 112/71
[2021-01-01] MEDS ORDERED: ONDANSETRON HCL 4 MG/2 ML VIAL IV PRN (17:30)
[2021-01-01 22:00] VITALS: BP 108/65
[2021-01-02 05:00] VITALS: BP 92/58
[2021-01-02 09:00] VITALS: BP 96/64
[2021-01-02] MEDS: ENOXAPARIN SOD 40 MG/0.4 ML SYRINGE SC SCH (10:00)
[2021-01-02] MEDS: PANTOPRAZOLE 40 MG TAB PO SCH (10:37)
[2021-01-02 13:00] VITALS: BP 96/64
[2021-01-02 17:00] VITALS: BP 96/62
[2021-01-02 22:00] VITALS: BP 108/69
[2021-01-03 05:00] VITALS: BP 103/64
[2021-01-03 08:00] VITALS: BP 103/71
[2021-01-03] MEDS ORDERED: LIDOCAINE 2%HCL (LOCAL ANESTH.) INJ 20ML MDV ONE (11:11)
[2021-01-03 12:00] VITALS: BP 102/75
[2021-01-03] MEDS: PANTOPRAZOLE 40 MG TAB PO SCH (12:00)
[2021-01-03] MEDS: ENOXAPARIN SOD 40 MG/0.4 ML SYRINGE SC SCH (12:10)
[2021-01-03] MEDS ORDERED: MIDAZOLAM HCL 2MG/2ML 2ml VIAL (1mg/ml) ONE (12:12)
[2021-01-03] MEDS ORDERED: fentaNYL CITRATE 100 MCG/2 ML VL ONE (12:12)
[2021-01-03] MEDS: HYDROcodone-ACET 5/325MG TAB PO PRN ×3 (13:53→22:27)
[2021-01-03 22:00] VITALS: BP 119/80
[2021-01-04] MEDS: HYDROcodone-ACET 5/325MG TAB PO PRN ×2 (02:39→06:36)
[2021-01-04 05:00] VITALS: BP 100/64
[2021-01-04 09:00] VITALS: BP 121/73
[2021-01-04] MEDS: PANTOPRAZOLE 40 MG TAB PO SCH (09:41)
[2021-01-04] MEDS: ENOXAPARIN SOD 40 MG/0.4 ML SYRINGE SC SCH (09:41)
[2021-01-04] MEDS: OXYCODONE W/ ACETAMINOPHEN 5/325MG TABLET PO PRN ×3 (09:42→18:56)
[2021-01-04] MEDS: PIPERACILLIN-TAZOB 3.375GM 100 ML IV SCH ×2 (11:44→18:30)
[2021-01-04 12:30] VITALS: BP 114/73
[2021-01-04 17:00] VITALS: BP 117/71
[2021-01-04 22:00] VITALS: BP 118/77
[2021-01-05] MEDS: PIPERACILLIN-TAZOB 3.375GM 100 ML IV SCH ×4 (00:10→18:15)
[2021-01-05] MEDS: OXYCODONE W/ ACETAMINOPHEN 5/325MG TABLET PO PRN ×4 (00:27→21:47)
[2021-01-05 05:00] VITALS: BP 108/65
[2021-01-05 05:53] LABS: Basophils # (auto) 0 10 ^3/uL (0-0.2); Basophils % (auto) 0.6 % (0.0-2.0); Eosinophils # (auto) 0 10 ^3/uL (0-0.8); Eosinophils % (auto) 0.5 % (0.0-7.0); Hematocrit 26.5 % (41.0-53.0); Hemoglobin 9.2 g/dL (13.5-17.5); Lymphocytes # (auto) 1.7 10 ^3/uL (0.4-5.4); Lymphocytes % (auto) 26.9 % (10.0-50.0); Mean Corpuscular Hgb Conc. 34.6 g/dL (32.0-36.0); Monocytes # (auto) 0.8 10 ^3/uL (0-1.3); Monocytes % (auto) 12.3 % (0.0-12.0); Neutrophils # (auto) 3.7 10 ^3/uL (1.6-8.6); Neutrophils % (auto) 59.7 % (37.0-80.0); Red Blood Cells 3.27 10^6/uL (4.5-5.90); Red Cell Distribution Width 15.8 % (11.8-14.3); White Blood Cell 6.3 10^3/uL (4.4-10.8)
[2021-01-05 08:15] VITALS: BP 114/73
[2021-01-05 08:59] VITALS: BP 114/73
[2021-01-05] MEDS ORDERED: MILK OF MAGNESIA 30ML SUSP PO ONE (09:00)
[2021-01-05] MEDS: ENOXAPARIN SOD 40 MG/0.4 ML SYRINGE SC SCH (09:57)
[2021-01-05] MEDS: DOCUSATE SOD 100 MG CAP PO PRN ×2 (09:57→21:47)
[2021-01-05] MEDS: PANTOPRAZOLE 40 MG TAB PO SCH (09:57)
[2021-01-05] MEDS ORDERED: MORPHINE SULFATE INJECTION 2 MG/ML SYRG IV PRN (10:30)
[2021-01-05 12:06] LABS: INR 1.05 (0.9-1.15); Partial Thromboplastin Time 33.4 sec (23.6-33.0)
[2021-01-05 13:00] VITALS: BP 108/66
[2021-01-05 17:17] VITALS: BP 113/72
[2021-01-05 23:03] VITALS: BP 111/71
[2021-01-06] MEDS: PIPERACILLIN-TAZOB 3.375GM 100 ML IV SCH ×5 (00:20→23:42)
[2021-01-06] MEDS: OXYCODONE W/ ACETAMINOPHEN 5/325MG TABLET PO PRN ×5 (02:00→23:51)
[2021-01-06 05:03] VITALS: BP 107/66
[2021-01-06 08:00] VITALS: BP 117/77
[2021-01-06 08:15] VITALS: BP 117/77
[2021-01-06] MEDS: ENOXAPARIN SOD 40 MG/0.4 ML SYRINGE SC SCH (10:08)
[2021-01-06] MEDS: PANTOPRAZOLE 40 MG TAB PO SCH (10:08)
[2021-01-06 12:00] VITALS: BP 115/79
[2021-01-06 16:00] VITALS: BP 112/74
[2021-01-06] MEDS: MORPHINE SULFATE INJECTION 2 MG/ML SYRG IV PRN (21:26)
[2021-01-06 22:25] VITALS: BP 107/71
[2021-01-07] MEDS: PIPERACILLIN-TAZOB 3.375GM 100 ML IV SCH ×3 (05:28→17:54)
[2021-01-07 05:33] VITALS: BP 108/71
[2021-01-07] MEDS: OXYCODONE W/ ACETAMINOPHEN 5/325MG TABLET PO PRN ×4 (06:47→21:42)
[2021-01-07] MEDS: DOCUSATE SOD 100 MG CAP PO PRN ×3 (07:04→17:55)
[2021-01-07 08:15] VITALS: BP 99/66
[2021-01-07 09:00] VITALS: BP 99/76
[2021-01-07] MEDS: ENOXAPARIN SOD 40 MG/0.4 ML SYRINGE SC SCH (10:30)
[2021-01-07] MEDS: PANTOPRAZOLE 40 MG TAB PO SCH (10:30)
[2021-01-07 13:00] VITALS: BP 118/67
[2021-01-07 17:00] VITALS: BP 119/76
[2021-01-07 22:00] VITALS: BP 118/81
[2021-01-08] MEDS: MORPHINE SULFATE INJECTION 2 MG/ML SYRG IV PRN (00:20)
[2021-01-08 05:00] VITALS: BP 113/72
[2021-01-08] MEDS: DOCUSATE SOD 100 MG CAP PO PRN ×2 (05:18→15:46)
[2021-01-08] MEDS: OXYCODONE W/ ACETAMINOPHEN 5/325MG TABLET PO PRN ×4 (05:18→21:18)
[2021-01-08] MEDS: PIPERACILLIN-TAZOB 3.375GM 100 ML IV SCH ×4 (06:33→17:32)
[2021-01-08 08:15] VITALS: BP 111/72
[2021-01-08 09:00] VITALS: BP 111/72
[2021-01-08] MEDS: PANTOPRAZOLE 40 MG TAB PO SCH (09:43)
[2021-01-08] MEDS: ENOXAPARIN SOD 40 MG/0.4 ML SYRINGE SC SCH (09:43)
[2021-01-08 13:00] VITALS: BP 113/71
[2021-01-08 17:00] VITALS: BP 126/77
[2021-01-08 22:00] VITALS: BP 108/71
[2021-01-09] MEDS: PIPERACILLIN-TAZOB 3.375GM 100 ML IV SCH ×4 (00:10→17:08)
[2021-01-09] MEDS: MORPHINE SULFATE INJECTION 2 MG/ML SYRG IV PRN (00:13)
[2021-01-09] MEDS: OXYCODONE W/ ACETAMINOPHEN 5/325MG TABLET PO PRN ×4 (05:14→23:00)
[2021-01-09 06:00] VITALS: BP 100/66
[2021-01-09] MEDS: PANTOPRAZOLE 40 MG TAB PO SCH (10:20)
[2021-01-09] MEDS: ENOXAPARIN SOD 40 MG/0.4 ML SYRINGE SC SCH (10:20)
[2021-01-09] MEDS: DOCUSATE SOD 100 MG CAP PO PRN (17:20)
[2021-01-09 22:00] VITALS: BP_SYST 117; BP_SYST 127; BP_DIAS 58; BP_DIAS 77
[2021-01-10] MEDS: PIPERACILLIN-TAZOB 3.375GM 100 ML IV SCH ×4 (00:22→18:04)
[2021-01-10] MEDS: OXYCODONE W/ ACETAMINOPHEN 5/325MG TABLET PO PRN ×4 (05:07→19:50)
[2021-01-10 06:10] VITALS: BP 103/64
[2021-01-10 09:16] VITALS: BP 106/74
[2021-01-10] MEDS: PANTOPRAZOLE 40 MG TAB PO SCH (09:31)
[2021-01-10] MEDS: ENOXAPARIN SOD 40 MG/0.4 ML SYRINGE SC SCH (09:33)
[2021-01-10] MEDS: DOCUSATE SOD 100 MG CAP PO PRN (09:40)
[2021-01-10 13:00] VITALS: BP 105/75
[2021-01-10 17:00] VITALS: BP 103/66
[2021-01-10 22:00] VITALS: BP 111/75
[2021-01-11] MEDS: OXYCODONE W/ ACETAMINOPHEN 5/325MG TABLET PO PRN ×4 (00:10→21:36)
[2021-01-11 05:00] VITALS: BP 105/73
[2021-01-11] MEDS: PIPERACILLIN-TAZOB 3.375GM 100 ML IV SCH ×4 (06:00→17:36)
[2021-01-11 06:19] LABS: Potassium 4.6 mmol/L (3.5-5.1)
[2021-01-11 06:28] LABS: BUN/Creatinine Ratio 15.9; Calcium 9.2 mg/dL (8.5-10.1)
[2021-01-11 08:00] VITALS: BP 102/65
[2021-01-11] MEDS ORDERED: IOHEXOL 300 MG/ML 100ML BOTTLE IJ ONE (08:22)
[2021-01-11 09:00] VITALS: BP 102/65
[2021-01-11] MEDS: ENOXAPARIN SOD 40 MG/0.4 ML SYRINGE SC SCH (09:43)
[2021-01-11] MEDS: PANTOPRAZOLE 40 MG TAB PO SCH (09:43)
[2021-01-11 17:00] VITALS: BP 108/68
[2021-01-11 22:00] VITALS: BP 102/66
[2021-01-12] MEDS: OXYCODONE W/ ACETAMINOPHEN 5/325MG TABLET PO PRN ×4 (04:10→22:12)
[2021-01-12 05:00] VITALS: BP 98/64
[2021-01-12] MEDS: PIPERACILLIN-TAZOB 3.375GM 100 ML IV SCH ×5 (06:00→23:46)
[2021-01-12 08:00] VITALS: BP 98/64
[2021-01-12] MEDS: PANTOPRAZOLE 40 MG TAB PO SCH ×2 (11:33→11:37)
[2021-01-12] MEDS: ENOXAPARIN SOD 40 MG/0.4 ML SYRINGE SC SCH ×2 (11:33→11:38)
[2021-01-12 13:00] VITALS: BP 111/72
[2021-01-12 21:00] VITALS: BP 103/68
[2021-01-13] MEDS: PIPERACILLIN-TAZOB 3.375GM 100 ML IV SCH ×2 (06:47→12:00)
[2021-01-13 09:00] VITALS: BP 109/72
[2021-01-13] MEDS: PANTOPRAZOLE 40 MG TAB PO SCH (10:17)
[2021-01-13] MEDS: ENOXAPARIN SOD 40 MG/0.4 ML SYRINGE SC SCH (10:17)
[2021-01-13] MEDS: OXYCODONE W/ ACETAMINOPHEN 5/325MG TABLET PO PRN (10:24)
[2021-01-13 13:00] VITALS: BP 114/74
== END 2021-01-13 14:49 | DRG 862 ==
LOC: ER 17:04 → EEVIPCON 17:04 → EDBD 17:04 → OVERFLOW 22:36 → WEST WING 23:21
PROVIDERS: ADMIT Specialist; ATTEND Specialist
PROC: 0W9H3ZZ Drainage of Retroperitoneum, Percutaneous Approach (ICD-10-PCS; principal; 2021-01-03)
DX: T81.43XA Infection following a procedure, organ and space surgical site, initial encounter (principal); K75.0 Abscess of liver; K65.1 Peritoneal abscess; Z90.49 Acquired absence of other specified parts of digestive tract; D64.9 Anemia, unspecified; E11.9 Type 2 diabetes mellitus without complications; K59.00 Constipation, unspecified; F17.210 Nicotine dependence, cigarettes, uncomplicated; Z79.84 Long term (current) use of oral hypoglycemic drugs; Y83.8 Other surgical procedures as the cause of abnormal reaction of the patient, or of later complication, without mention of misadventure at the time of the procedure
CPT/HCPCS: 10022; 36415; 74150; 74176; 74177; 77012; 80048; 80053; 82962; 83036; 83690; 85025; 85610; 85730; 87077; 87081; 87205; 93005; C1729; G0378; J2185; J2250; J2543